=== PATIENT | male | born 1985 | race Hispanic/Latino ===

== ENCOUNTER → 2020-07-26 | Outpatient (CLI) | payer OTHER | END | disposition home or self-care (01) | LOC: RAH 09:36 | PROVIDERS: ATTEND Internal Medicine | DX: D17.24 Benign lipomatous neoplasm of skin and subcutaneous tissue of left leg (principal); R22.41 Localized swelling, mass and lump, right lower limb; L72.3 Sebaceous cyst | CPT/HCPCS: 76882 ==